=== PATIENT | female | born 1965 | race Caucasian/White ===

== ENCOUNTER 2024-11-20 14:29 | Emergency (ER) | payer BC ==
[~2024-11-20] VITALS: Ht 160 cm; Wt 68.0 kg
[2024-11-20] MEDS ORDERED: OXYC5CAP22 PO (17:28)
[2024-11-20] MEDS: acetaminophen 325mg tablet PO ONE (17:32)
[2024-11-20 17:43] VITALS: BP 149/82; PULSE 76; RESP 17; TEMP 98.5; O2SAT 97
== END 2024-11-20 17:45 | disposition home or self-care (01) ==
LOC: ER 14:30
DX: S42.211A Unspecified displaced fracture of surgical neck of right humerus, initial encounter for closed fracture (principal); S00.83XA Contusion of other part of head, initial encounter; W01.0XXA Fall on same level from slipping, tripping and stumbling without subsequent striking against object, initial encounter; Y93.89 Activity, other specified; Y92.89 Other specified places as the place of occurrence of the external cause; Y99.8 Other external cause status
CPT/HCPCS: 70450; 70486; 71045; 72125; 73030; 99284; A4565